=== PATIENT | male | born 1965 | race Caucasian/White ===

== ENCOUNTER 2021-12-19 08:41 | Emergency (ER) | payer OTHER, BC ==
[2021-12-19 09:46] VITALS: BP 118/83; PULSE 72
[2021-12-19 09:51] LABS: ANION GAP 13.1 mmol/L (5-15); CHLORIDE,CL 103 mmol/L (98-107); ESTIMATED GFR 88 mL/min (>=60); SODIUM,NA 138 mmol/L (136-145)
== END 2021-12-19 10:05 | disposition home or self-care (01) ==
LOC: VM.ED 08:41
DX: R07.89 Other chest pain (principal); E78.00 Pure hypercholesterolemia, unspecified; Z88.8 Allergy status to other drugs, medicaments and biological substances; Z79.899 Other long term (current) drug therapy; Z87.891 Personal history of nicotine dependence
CPT/HCPCS: 36415; 71046; 80053; 82550; 83615; 84484; 85025; 86140; 93005; 93010; 99284; 99285